=== PATIENT | male | born 1990 | race African-American/Black ===

== ENCOUNTER 2019-12-16 15:26 | Emergency (ER) | payer MEDICAID ==
[~2019-12-16] VITALS: Ht 188 cm; Wt 120.0 kg
[2019-12-16 15:29] VITALS: BP 135/93
[2019-12-16] MEDS ORDERED: IBUPROFEN 600MG TABLET PO ONE (16:00)
== END 2019-12-16 16:30 | disposition left against medical advice (07) ==
LOC: ER 15:26
DX: R05 Cough (principal); Z20.828 Contact with and (suspected) exposure to other viral communicable diseases
CPT/HCPCS: 71045; 99283